=== PATIENT | female | born 1955 | race Caucasian/White ===

== ENCOUNTER 2016-08-26 08:35 | Inpatient (IN) | payer BC, OTHER ==
[~2016-08-26] VITALS: Ht 149.9 cm; Wt 58.1 kg
[2016-08-26] MEDS ORDERED: RT-ALBUTEROL/IPRATROPIUM 3 ML (DUONEB) VIAL ONE (08:40)
[2016-08-26] MEDS ORDERED: DOXY100C2 PO (08:44)
[2016-08-26] MEDS ORDERED: RT-ALBUINH INH (08:45)
[2016-08-26] MEDS ORDERED: PRD50T (08:45)
[2016-08-26] MEDS ORDERED: PRD10T PO (08:45)
[2016-08-26] MEDS ORDERED: FLUT1DIS27 INH (08:45)
[2016-08-26] MEDS ORDERED: TIOT4MIS2 INH (08:45)
[2016-08-26] MEDS ORDERED: RT-ALBUTEROL SULF 2.5 MG/3 ML PRE-MIX VIAL ONE (08:46)
[2016-08-26] MEDS ORDERED: RT-ALBUTEROL/IPRATROPIUM 3 ML (DUONEB) VIAL INH ONE (09:15)
[2016-08-26 09:16] VITALS: BP 148/127
[2016-08-26 09:23] LABS: BASOPHILS % (AUTO) 0 % (0-10); EOSINOPHILS % (AUTO) 0 % (0-10); LYMPHOCYTES # (AUTO) 1.1 X 10^3 (1.0-4.0); LYMPHOCYTES % (AUTO) 6 % (12-44); MEAN CORPUSCULAR HEMOGLOBIN 28 PG (25-34); MEAN CORPUSCULAR HGB CONC 33 G/DL (32-36); MEAN CORPUSCULAR VOLUME 84 FL (80-99); MEAN PLATELET VOLUME 9.5 FL (7.4-10.4); MONOCYTES # (AUTO) 1.2 X 10^3 (0.0-1.0); MONOCYTES % (AUTO) 7 % (0-12); NEUTROPHILS # (AUTO) 15.1 X 10^3 (1.8-7.8); NEUTROPHILS % (AUTO) 87 % (42-75); PLATELET COUNT 491 10^3/uL (130-400); RED BLOOD COUNT 5.08 10^6/uL (4.35-5.85); RED CELL DISTRIBUTION WIDTH 14.5 % (10.0-14.5); WHITE BLOOD COUNT 17.3 10^3/uL (4.3-11.0)
[2016-08-26 09:37] LABS: ALANINE AMINOTRANSFERASE 28 U/L (0-55); ALBUMIN 4.1 G/DL (3.2-4.5); ANION GAP 10 MMOL/L (5-14); ASPARTATE AMINO TRANSFERASE 30 U/L (5-34); BILIRUBIN,TOTAL 0.5 MG/DL (0.1-1.0); BLOOD UREA NITROGEN 15 MG/DL (7-18); BUN/CREATININE RATIO 19; CALCIUM 8.9 MG/DL (8.5-10.1); CARBON DIOXIDE 27 MMOL/L (21-32); CHLORIDE 105 MMOL/L (98-107); GFR ESTIMATED > 60; GLUCOSE 110 MG/DL (70-105); POTASSIUM 4.1 MMOL/L (3.6-5.0); SODIUM 142 MMOL/L (135-145); TOTAL PROTEIN 6.6 G/DL (6.4-8.2)
[2016-08-26 09:41] VITALS: BP 148/106
--- NOTE | 2016-08-26 09:45 | ED Respiratory ---
General Chief Complaint: Respiratory Problems Stated Complaint: SOA Nursing Triage Note: AMB TO ROOM WITH 02 ON REPORTS HAS BEEN SOA FOR SEVERAL DAY WAS PUT ON PREDISONE AND ANTIBIOTIC BY SALES REPRESENTATIVE [employer]. LAST 2 DAYS GOTTEN WORSE. Source: patient Exam Limitations: no limitations History of Present Illness Time seen by provider: 09:40 Initial Comments The patient is a 61-year-old white female with COPD and home oxygen requirements. She reports that the last few days she has had increasing difficulties with breathing. 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 She is not very sophisticated about her medications but it appears that she was originally started of on rifampin and ethambutol. She had some sort of problem with the rifampin. Ultimately this was determined to be Mycobacterium avium complex and she was switched to Biaxin which would be appropriate. Timing/Duration: week Prior Episodes/Possible Cause: chronic episodes Associated Symptoms: cough Allergies and Home Medications Allergies Coded Allergies: rifampin (Verified Allergy, Unknown, 08/26/16) Home Medications Albuterol Sulfate 8.5 Gm Hfa.aer.ad #34 (Reported) Doxycycline Hyclate 100 Mg Capsule #20 (Reported) Fluticasone/Salmeterol 1 Each Blst.w.dev #60 (Reported) Prednisone 50 Mg Tab #7 (Reported) Prednisone 10 Mg Tab #21 (Reported) Tiotropium [place] 4 Gm Mist.inhal #4 (Reported) Constitutional: see HPI EENTM: no symptoms reported Respiratory: cough short of breath wheezing Cardiovascular: palpitations Gastrointestinal: no symptoms reported Genitourinary: no symptoms reported Musculoskeletal: no symptoms reported Skin: no symptoms reported Psychiatric/Neurological: No Symptoms Reported Hematologic/Lymphatic: No Symptoms Reported Immunological/Allergic: no symptoms reported Past Tkodofd-Maaovs-Pjuabe Hx Patient Social History Alcohol Use: Occasionally Uses Recreational Drug Use: No Smoking Status: Former Smoker Recent Foreign Travel: No Contact w/Someone Who Travel: No Recent Infectious Disease Expo: No Recent Hopitalizations: Yes (marcelle) Immunizations Up To Date Date of Influenza Vaccine: Apr 26, 2016 Surgeries HX Surgeries: Yes Surgeries: Hysterectomy Respiratory Hx Respiratory Disorders: Yes (MAC INFECTION IN NOV. ) Respiratory Disorders: COPD Cardiovascular Hx Cardiac Disorders: No Neurological Hx Neurological Disorders: No Reproductive System Hx Reproductive Disorders: No Gastrointestinal Hx Gastrointestinal Disorders: No Musculoskeletal Hx Musculoskeletal Disorders: No Endocrine Hx Endocrine Disorders: No HEENT HX ENT Disorders: No Cancer Hx Cancer: No Psychosocial Hx Psychiatric Problems: No Physical Exam Vital Signs Vital Sign - Last 12Hours 08/26/16 08/26/16 08:35 08:50 Temp 97.8 Pulse 112 Resp 22 B/P 145/112 Pulse Ox 88 O2 Delivery Nasal Cannula O2 Flow Rate 3 Capillary Refill : Less Than 3 Seconds General Appearance: moderate distress Eyes: Bilateral Eye Normal Inspection HEENT: normal ENT inspection Neck: full range of motion Respiratory: decreased breath sounds accessory muscle use expiration ( expiratory wheezing) Cardiovascular: tachycardia Gastrointestinal: normal bowel sounds non tender soft no organomegaly no pulsatile mass Extremities: normal range of motion non-tender normal inspection no pedal edema no calf tenderness normal capillary refill pelvis stable Neurologic/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: 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 nml as tested no motor/sensory deficits alert normal mood/affect oriented x 3 Skin: normal color Lymphatic: no adenopathy axilla node tender (R) axilla node tender (L) inguinal node tender (R) inguinal node tender (L) Progress/Results/Core Measures Results/Orders Lab Results Laboratory Tests Test 08/26/16 08:55 Range/Units Alanine Aminotransferase (ALT/SGPT) 28 0-55 U/L Albumin 4.1 3.2-4.5 G/DL Alkaline Phosphatase 63 40-136 U/L Anion Gap 10 5-14 MMOL/L Aspartate Amino Transf (AST/SGOT) 30 5-34 U/L BUN/Creatinine Ratio 19 Band Neutrophils 0 % Basophils # (Auto) 0.0 0.0-0.1 10^3/uL Basophils % (Manual) 0 % Basophils (%) (Auto) 0 0-10 % Blood Morphology Comment NORMAL Blood Urea Nitrogen 15 7-18 MG/DL Calcium Level 8.9 8.5-10.1 MG/DL Carbon Dioxide Level 27 21-32 MMOL/L Chloride Level 105 98-107 MMOL/L Creatinine 0.80 0.60-1.30 MG/DL Eosinophils # (Auto) 0.0 0.0-0.3 10^3/uL Eosinophils % (Manual) 0 % Eosinophils (%) (Auto) 0 0-10 % Estimat Glomerular Filtration Rate > 60 Glucose Level 110 H 70-105 MG/DL Hematocrit 43 35-52 % Hemoglobin 14.1 11.5-16.0 G/DL Lymphocytes # (Auto) 1.1 1.0-4.0 X 10^3 Lymphocytes % (Manual) 2 % Lymphocytes (%) (Auto) 6 L 12-44 % Mean Corpuscular Hemoglobin 28 25-34 PG Mean Corpuscular Hemoglobin Concent 33 32-36 G/DL Mean Corpuscular Volume 84 80-99 FL Mean Platelet Volume 9.5 7.4-10.4 FL Monocytes # (Auto) 1.2 H 0.0-1.0 X 10^3 Monocytes % (Manual) 1 % Monocytes (%) (Auto) 7 0-12 % Neutrophils # (Auto) 15.1 H 1.8-7.8 X 10^3 Neutrophils % (Manual) 85 % Neutrophils (%) (Auto) 87 H 42-75 % Platelet Count 491 H 130-400 10^3/uL Potassium Level 4.1 3.6-5.0 MMOL/L Reactive Lymphocytes 12 % Red Blood Count 5.08 4.35-5.85 10^6/uL Red Cell Distribution Width 14.5 10.0-14.5 % Sodium Level 142 135-145 MMOL/L Total Bilirubin 0.5 0.1-1.0 MG/DL Total Protein 6.6 6.4-8.2 G/DL White Blood Count 17.3 H 4.3-11.0 10^3/uL My Orders Orders-PITA BERGER MD Albuterol/Ipra Inhalation Soln (Duoneb I (08/26/16 08:40) Albuterol Pre-Mix Nebs (Rt) (Proventil P (08/26/16 08:46) Cbc With Automated Diff (08/26/16 09:01) Comprehensive Metabolic Panel (08/26/16 09:01) Ua Culture If Indicated (08/26/16 09:01) Chest 1 View, Ap/Pa Only (08/26/16 09:01) Albuterol/Ipra Inhalation Soln (Duoneb I (08/26/16 09:15) Rt Request For Service (08/26/16 09:01) Svn Sm Volume Nebulizer Rt-Rfs (08/26/16 09:01) Manual Differential (08/26/16 08:55) Medications Given in ED Current Medications Medications Dose Ordered Sig/Sonia Route Start Time Stop Time Status Last Admin Dose Admin Albuterol Sulfate 2.5 mg STK-MED ONCE .ROUTE 08/26/16 08:46 08/26/16 08:47 DC 08/26/16 08:50 2.5 MG Albuterol/ Ipratropium 3 ml STK-MED ONCE .ROUTE 08/26/16 08:40 08/26/16 08:42 DC 08/26/16 08:49 3 ML Vital Signs/I&O Vital Sign - Last 12Hours 08/26/16 08/26/16 08/26/16 08/26/16 08:35 08:50 09:16 09:41 Temp 97.8 Pulse 112 136 120 Resp 22 14 20 B/P 145/112 148/106 Pulse Ox 88 96 96 98 O2 Delivery Nasal Cannula NIV CPAP O2 Flow Rate 3 40 Blood Pressure Mean: 123 Departure Communication Progress Notes Patient shows some improvement after aerosol treatment however she is still considerably tachypneic and for that matter hypertensive and tachycardic post treatment. I discussed admission for intensive pulmonary toilet with Dr. Mcintosh about 1030 Impression Impression: Primary Impression: COPD with acute exacerbation Additional Impression: MAC Disposition: 09 ADMITTED INPATIENT Condition: Stable/Unchanged Decision to Admit Reason: Admit from ER (General) Decision to Admit/Date: Aug 26, 2016 Time/Decision to Admit Time: 10:51 PITA BERGER MD Aug 26, 2016 09:45
--- NOTE | 2016-08-26 09:50 | Diagnostic Imaging Report ---
EXAMINATION: Portable upright radiograph of the chest. INDICATION: Shortness of breath FINDINGS: There is a 9 mm nodular density in the left perihilar region. This could be a pulmonary nodule versus an endon vessel. The lungs are hyperinflated with prominent interstitial markings. No focal airspace consolidation. No effusion or pneumothorax. The heart size is normal. The mediastinum and mely appear unremarkable. IMPRESSION: Hyperinflated lungs. Indeterminate left perihilar nodular density seen. Further evaluation with CT scan recommended. Dictated by: Dictated on workstation # [id number]
[2016-08-26 10:18] LABS: BAND NEUTROPHILS 0 %; BASOPHILS % (MANUAL) 0 %; EOSINOPHILS % (MANUAL) 0 %; LYMPHOCYTES % (MANUAL) 2 %; NEUTROPHILS % (MANUAL) 85 %; REACTIVE LYMPHOCYTES 12 %
[2016-08-26] MEDS ORDERED: methylPREDNISolone 125 MG (Solu-MEDROL) VIAL IVP ONE (11:00)
[2016-08-26] MEDS ORDERED: ALPRAZolam 0.25 MG (XANAX) TAB PO PRN (12:30)
[2016-08-26] MEDS ORDERED: ONDANSETRON 4 MG/2 ML (SDV) Z0FRAN IVP PRN (12:30)
[2016-08-26] MEDS ORDERED: SENNA W/DOCUSATE (SENOKOT S) TABLET PO PRN (12:30)
[2016-08-26] MEDS ORDERED: ACETAMINOPHEN 500 MG TAB (TYLENOL) PO PRN (12:30)
[2016-08-26 12:35] VITALS: BP 158/99
[2016-08-26] MEDS ORDERED: RT-ALBUTEROL/IPRATROPIUM 3 ML (DUONEB) VIAL INH SCH (13:00)
[2016-08-26] MEDS ORDERED: EFIN4SOL TOP (13:32)
[2016-08-26] MEDS ORDERED: CYCL10TA9 PO (13:32)
[2016-08-26] MEDS ORDERED: CLAR-19 PO (13:32)
[2016-08-26] MEDS ORDERED: LEVO100T7 PO (13:32)
[2016-08-26] MEDS ORDERED: ALEN70TA47 PO (13:32)
[2016-08-26] MEDS ORDERED: ETHA400T29 PO (13:32)
[2016-08-26] MEDS: RT-BUDESONIDE NEBS 0.5 MG/2ML (PULMICORT) AMP INH SCH ×2 (13:33→18:43)
[2016-08-26] MEDS: ENOXAPARIN 40 MG/0.4 ML (LOVENOX) SYR SC SCH (13:46)
[2016-08-26] MEDS ORDERED: NAPR220T66 PO (14:21)
[2016-08-26] MEDS: RT-ALBUTEROL/IPRATROPIUM 3 ML (DUONEB) VIAL INH SCH ×2 (14:47→18:43)
[2016-08-26 14:59] LABS: ABG BASE EXCESS 3.2 MMOL/L (-2.5-2.5); ABG HCO3 29 MMOL/L (23-27); ABG OXYGEN SATURATION 97 % (94-100); ABG PCO2 46 MMHG (35-45); ABG PH 7.41 (7.37-7.43); ABG PO2 75 MMHG (79-93); ABG TCO2 30.2 MMOL/L (21.0-31.0); ALLENS TEST YES-POS; PATIENT TEMP 97.2
[2016-08-26] MEDS ORDERED: ETHAMBUTOL 100 MG PO SCH (15:02)
[2016-08-26 16:55] VITALS: BP 156/91
[2016-08-26] MEDS: methylPREDNISolone 40 MG/ML (Solu-MEDROL) VIAL IV SCH (18:00)
[2016-08-26] MEDS ORDERED: FLU TRIvalent (5 YOA+) 2016-17 (AFLURIA) 0.5 ML IM ONE (18:00)
[2016-08-26] MEDS ORDERED: methylPREDNISolone 40 MG/ML (Solu-MEDROL) VIAL IV SCH (18:00)
[2016-08-26 20:45] VITALS: BP 137/99
[2016-08-27] VITALS: BP 156/96
[2016-08-27] MEDS: methylPREDNISolone 40 MG/ML (Solu-MEDROL) VIAL IV SCH ×5 (00:12→23:54)
[2016-08-27] MEDS: HYDROcodone/APAP 5 MG/325 MG (LORTAB) TAB PO PRN ×4 (00:19→19:46)
[2016-08-27] MEDS ORDERED: RT-ALBUTEROL/IPRATROPIUM 3 ML (DUONEB) VIAL INH PRN (00:30)
[2016-08-27 01:11] LABS: BILIRUBIN,URINE NEGATIVE (NEGATIVE); KETONES,URINE NEGATIVE (NEGATIVE); LEUKOCYTE ESTERASE ,URINE NEGATIVE (NEGATIVE); NITRITE,URINE NEGATIVE (NEGATIVE); PH,URINE 6 (5-9); PROTEIN,URINE NEGATIVE (NEGATIVE); UROBILINOGEN,URINE NORMAL (NORMAL)
[2016-08-27 01:19] LABS: SQUAMOUS EPITHELIAL CELL,UR 0-2 /HPF
[2016-08-27] MEDS: RT-ALBUTEROL/IPRATROPIUM 3 ML (DUONEB) VIAL INH SCH ×6 (02:33→22:07)
[2016-08-27 04:00] VITALS: BP 137/72
[2016-08-27 05:05] LABS: BASOPHILS % (AUTO) 0 % (0-10); EOSINOPHILS % (AUTO) 0 % (0-10); LYMPHOCYTES # (AUTO) 0.6 X 10^3 (1.0-4.0); LYMPHOCYTES % (AUTO) 3 % (12-44); MEAN CORPUSCULAR HEMOGLOBIN 28 PG (25-34); MEAN CORPUSCULAR HGB CONC 32 G/DL (32-36); MEAN CORPUSCULAR VOLUME 85 FL (80-99); MEAN PLATELET VOLUME 9.5 FL (7.4-10.4); MONOCYTES # (AUTO) 0.8 X 10^3 (0.0-1.0); MONOCYTES % (AUTO) 4 % (0-12); NEUTROPHILS # (AUTO) 16.5 X 10^3 (1.8-7.8); NEUTROPHILS % (AUTO) 92 % (42-75); PLATELET COUNT 444 10^3/uL (130-400); RED BLOOD COUNT 4.91 10^6/uL (4.35-5.85); RED CELL DISTRIBUTION WIDTH 14.5 % (10.0-14.5); WHITE BLOOD COUNT 17.9 10^3/uL (4.3-11.0)
[2016-08-27 05:26] LABS: ALANINE AMINOTRANSFERASE 29 U/L (0-55); ALBUMIN 3.8 G/DL (3.2-4.5); ANION GAP 11 MMOL/L (5-14); ASPARTATE AMINO TRANSFERASE 25 U/L (5-34); BILIRUBIN,TOTAL 0.4 MG/DL (0.1-1.0); BLOOD UREA NITROGEN 17 MG/DL (7-18); BUN/CREATININE RATIO 22; CALCIUM 8.2 MG/DL (8.5-10.1); CARBON DIOXIDE 27 MMOL/L (21-32); CHLORIDE 102 MMOL/L (98-107); CREATININE SERUM 0.77 MG/DL (0.60-1.30); GFR ESTIMATED > 60; GLUCOSE 138 MG/DL (70-105); POTASSIUM 4.1 MMOL/L (3.6-5.0); SODIUM 140 MMOL/L (135-145); TOTAL PROTEIN 6.2 G/DL (6.4-8.2)
--- NOTE | 2016-08-27 06:39 | Pulmonary Consultation ---
History of Present Illness History of Present Illness Date of Consultation 08/27/16 06:32 Date of Admission History of Present Illness 61yo with hx of severe COPD with home oxygen, MAC 1yr ago (known to ID in [place] ) presented secondary to worsening SOB. She was on treatment for her MAC through ID ( Dr. Carl) however she did not tolerate rifampin. Pt was supposed to be on Azithromycin and Ethambutol at home however pt could not afford medications and decided to go off treatment and did not follow back up with ID. Petr Mayer RN spoke with Dr. Carl's office and confirmed above information. Pt is presenting with worsening SOB over the last 3-4 days. Pt was placed on prednisone and Abx by [facility] without significant improvement. I am consulted for pulmonary management . Allergies and Home Medications Allergies Coded Allergies: rifampin (Verified Allergy, Unknown, 08/26/16) Home Medications Albuterol Sulfate 8.5 Gm Hfa.aer.ad 2 PUFF INH Q4H PRN PRN SHORTNESS OF BREATH ( Reported) Alendronate Sodium 70 Mg Tablet 70 MG PO [place] (Reported) Cyclobenzaprine HCl 10 Mg Tablet 10 MG PO TID PRN PRN MUSCLE SPASMS (Reported) Doxycycline Hyclate 100 Mg Capsule 10Days 100 MG PO BID (Reported) 10 DAY SUPPLY FILLED 08-20-16 Fluticasone/Salmeterol 1 Each Blst.w.dev 1 PUFF INH BID (Reported) Levothyroxine Sodium 100 Mcg Tablet 100 MCG PO DAILY (Reported) Naproxen Sodium 220 Mg Tablet 220 MG PO Q8H PRN PRN PAIN (Reported) Prednisone 10 Mg Tab 10Days PO UD (Reported) 4 TABS X 2 DAYS 3 TABS X 2 DAYS 2 TABS X 2 DAYS 1 TAB X 2 DAYS 1/2 TAB X 2 DAYS FILLED #21 08-24-16 Tiotropium [place] 4 Gm Mist.inhal 2 PUFF INH DAILY (Reported) Past Uebzyck-Bxouji-Tfhzlv Hx Patient Social History Alcohol Use: Regular Use Recreational Drug Use: No Smoking Status: Never a Smoker Recent Foreign Travel: No Contact w/Someone Who Travel: No Recent Infectious Disease Expo: No Recent Hopitalizations: Yes (marcelle) Physical Abuse Screen: No Sexual Abuse: No Immunizations Up To Date Date of Influenza Vaccine: Apr 26, 2016 Seasonal Allergies Seasonal Allergies: No Surgeries HX Surgeries: Yes Surgeries: Hysterectomy Respiratory Hx Respiratory Disorders: Yes (MAC INFECTION IN NOV. ) Respiratory Disorders: COPD Cardiovascular Hx Cardiac Disorders: No Neurological Hx Neurological Disorders: No Reproductive System Hx Reproductive Disorders: No Gastrointestinal Hx Gastrointestinal Disorders: No Musculoskeletal Hx Musculoskeletal Disorders: No Musculoskeletal Disorders: Scoliosis Endocrine Hx Endocrine Disorders: No HEENT HX ENT Disorders: No Cancer Hx Cancer: No Psychosocial Hx Psychiatric Problems: No Blood Transfusions Adverse Reaction to a Blood Tr: No Family Medical History Family Medial History: Patient reports no known family medical history. Review of Systems Constitutional: : Malaise: WeaknessNo: Chills, Fever, Other, Sweats Eyes: No: Conjunctivae inflammation, Eyelid inflammation, Other, Pain, Redness , Vision change Respiratory: : Cough: SOB with excertion: Shortness of breath: Sputum Cardiovascular: : Paroxysmal Noc. Dyspnea Gastrointestinal: No: Abdominal Pain, Constipation, Diarrhea, Hematochezia, Melena, Nausea, Other, Vomiting Neurological: : Weakness Exam Exam Vital Signs Date Time Temp Pulse Resp B/P Pulse Ox O2 Delivery O2 Flow Rate FiO2 08/27/16 04:00 98.3 104 20 137/72 96 Nasal Cannula 3.00 08/27/16 02:33 94 3.00 08/27/16 00:40 96 5.00 08/27/16 00:00 98.2 105 19 156/96 97 Nasal Cannula 3.00 08/26/16 20:45 98.7 129 21 137/99 90 Nasal Cannula 3.00 08/26/16 20:25 Nasal Cannula 3.00 08/26/16 18:53 98 3.00 08/26/16 18:43 94 3.00 08/26/16 16:55 98.0 109 24 156/91 94 Nasal Cannula 3.00 08/26/16 14:47 95 3.00 08/26/16 12:55 112 20 97 08/26/16 12:35 97 Nasal Cannula 3.00 08/26/16 12:35 97.1 105 18 158/99 96 Nasal Cannula 3.00 08/26/16 11:02 125 17 95 40 08/26/16 09:41 120 20 148/106 98 NIV CPAP 08/26/16 09:16 136 14 96 40 08/26/16 08:50 96 3 08/26/16 08:35 97.8 112 22 145/112 88 Nasal Cannula I & O 08/27/16 07:00 Intake Total 620 ml Output Total 775 ml Balance -155 ml General Appearance: No Apparent Distress WD/WN Anxious Chronically ill Respiratory: Normal Breath Sounds No Accessory Muscle Use No Respiratory Distress Decreased Breath Sounds Cardiovascular: Regular Rate, Rhythm No Edema Capillary Refill: Less Than 3 Seconds Gastrointestinal: normal bowel sounds non tender soft no organomegaly no pulsatile mass Neurologic/Psychiatric: Alert Oriented x3 Skin: Normal Color Warm/Dry Lymphatic: No Adenopathy Results Lab Laboratory Tests 08/26/16 08:55 08/27/16 04:30 Assessment/Plan Assessment/Plan -COPDAE oxygen dependent - quit smoking 5 yrs ago -Solumedrol, SVNs -Continue azithromycin and start cefepime -check sputum C&S -oxygen Hx of MAC - she quit treatment secondary to helms -azithromycin and ethambutol - previously rx by ID ---- PT IS REFUSING MAC TREATMENT -consult SW for financial assistance -obtain CT of chest that was done 3 wks ago -This does not require isolation -Obtain cultures from [facility] pt has had a recent bronchoscopy. Pt is known to pulmonary in [place] leukocytosis - possibly secondary to prednisone -check coulter cultures Poor medical compliance - pt is very difficult to treat. She was threatening to leave AMA last night secondary to RT trying to give her an SVN treatment. She was also yelling at Petr MITCHELL over her MAC treatment. I did explain to pt that she has the right to refuse treatment and sign herself out AMA if she wishes. Clinical Quality Measures DVT/VTE Risk/Contraindication: Risk Factor Score Per Nursin RFS Level Per Nursing on Admit: 4+=Very High PARRISH AGGARWAL DO Aug 27, 2016 06:39
[2016-08-27] MEDS: CEFEPIME INJECTION 2,000 MG in NS (IVPB) 50 ML IV SCH (07:59)
[2016-08-27] MEDS: AZITHROMYCIN 250 MG TAB (ZITHROMAX) PO SCH (07:59)
[2016-08-27 08:00] VITALS: BP 165/98
[2016-08-27] MEDS: RT-BUDESONIDE NEBS 0.5 MG/2ML (PULMICORT) AMP INH SCH ×2 (09:03→18:11)
[2016-08-27] MEDS ORDERED: CYCLOBENZAPRINE 10 MG (FLEXERIL) TAB PO PRN (09:30)
[2016-08-27] MEDS ORDERED: NAPROXEN 250 MG (NAPROSYN) TABLET PO PRN (10:00)
[2016-08-27] MEDS ORDERED: CATHETER FLUSH 10 ML SYR IV PRN (10:15)
--- NOTE | 2016-08-27 11:13 | History & Physical-Hospitalist ---
HPI History of Present Illness: HPI/Chief Complaint CC: SOB HPI: This is a 61yoWF that has a recent hx of MAC that presents to the ER with SOB. Isolation has been DC'd by Dr. Cheng and overall doing much better. Pt was previously hospitalized in [place] in May and was diagnosed with bacterial infection. Pt was previously placed on Biaxin and Zithromax, along with 50mg of Prednisone. Pt was also placed on Doxycycline from Urgent Care. Pt is has hx of COPD and uses home O2. Chart Review: WBC 17.9 due to steroid effect ABG reveals 7.41/46/75 on 3L CMP normal UA normal CXR COPD changes Patient Interview: Pt states that she feels a little bit better than yesterday. Pt states that she only uses home O2 prn. Dr. Tam informs pt that isolation has been DCd. Pt's PCP is Dr. Lu. Pt states that she quit smoking 7 yrs ago. Pt drinks 2-3 beers per week. Pt lives alone. 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 Physical exam stable Pt states that she has a cold Pt denies taking pain medicine regularly, although pt occasionally uses Aleve or Hydrocodone for her back. Dr. Tam discusses with pt the possibility of staying a few more nights at [facility] for full recovery. Pt agrees with this plan. Pt uses [facility] pharmacy near the [facility]. Scribed by Aden Esteban under the direct supervision of Dr. Tam. Source: patient Exam Limitations: no limitations Date Seen 08/27/16 Attending Physician Abigail Tam DO PCP No,Local Physician Referring Physician Date of Admission Aug 26, 2016 at 11:22 Home Medications & Allergies Home Medications Reviewed patient Home Medication Reconciliation Form Allergies Coded Allergies: rifampin (Verified Allergy, Unknown, 08/26/16) Past Jrclkbu-Juchqg-Mhgslj Hx Patient Social History Marrital Status: single Employed/Student: retired ([employer]) Alcohol Use: Regular Use Recreational Drug Use: No Smoking Status: Former Smoker (quit in 2009) Physical Abuse Screen: No Sexual Abuse: No Recent Foreign Travel: No Contact w/other who traveled: No Recent Hopitalizations: Yes (marcelle) Recent Infectious Disease Expo: No Immunizations Up To Date Date of Influenza Vaccine: Apr 26, 2016 Seasonal Allergies Seasonal Allergies: No Surgeries HX Surgeries: Yes Surgeries: Hysterectomy Respiratory Hx Respiratory Disorders: Yes (MAC INFECTION IN NOV. ) Respiratory Disorders: COPD, Emphysema Cardiovascular Hx Cardiovascular Disorders: No Neurological Hx Neurological Disorders: No Reproductive System Hx Reproductive Disorders: No Genitourinary Hx Genitourinary Disorders: No Gastrointestinal Hx Gastrointestinal Disorders: No Musculoskeletal Hx Musculoskeletal Disorders: Yes Musculoskeletal Disorders: Scoliosis Endocrine Hx Endocrine Disorders: Yes Endocrine Disorders: Hypothyroidsim HEENT HX ENT Disorders: No Cancer Hx Cancer: No Psychosocial Hx Psychiatric Problems: No Blood Transfusions Adverse Reaction to a Blood Tr: No Family Medical History Family Hx: Patient reports no known family medical history. Review of Systems Constitutional: see HPI chills diaphoresis dizziness fever weakness EENTM: no symptoms reported Respiratory: cough dyspnea on exertion short of breath wheezing Cardiovascular: no symptoms reported Gastrointestinal: no symptoms reported Genitourinary: no symptoms reported Musculoskeletal: no symptoms reported Skin: no symptoms reported Psychiatric/Neurological: No Symptoms Reported All Other Systems Reviewed Negative Unless Noted: Yes Physical Exam Physical Exam Vital Signs Vital Sign - Last 12Hours 08/26/16 08/26/16 08:35 08:50 Temp 97.8 Pulse 112 Resp 22 B/P 145/112 Pulse Ox 88 O2 Delivery Nasal Cannula O2 Flow Rate 3 Capillary Refill : Less Than 3 Seconds General Appearance: No Apparent Distress WD/WN Anxious Chronically ill Mild Distress (due to mild tachypnea when conversing) Eyes: Bilateral Eye Normal Inspection, Bilateral Eye PERRL HEENT: PERRL/EOMI Normal ENT Inspection Pharynx Normal Neck: Full Range of Motion Normal Inspection Non Tender Supple Carotid Bruit Respiratory: Chest Non Tender No Respiratory Distress Accessory Muscle Use ( when conversing) Crackles Decreased Breath Sounds Rales Wheezing Cardiovascular: Regular Rate, Rhythm No Edema No Gallop No JVD No Murmur Normal Peripheral Pulses Gastrointestinal: Normal Bowel Sounds No Organomegaly No Pulsatile Mass Non Tender Soft Back: Normal Inspection No CVA Tenderness No Vertebral Tenderness Extremity: Normal Capillary Refill Normal Inspection Normal Range of Motion Non Tender No Calf Tenderness No Pedal Edema Neurologic/Psychiatric: Alert Oriented x3 No Motor/Sensory Deficits Normal Mood/Affect Skin: Normal Color Warm/Dry Lymphatic: No Adenopathy Results Results/Procedures Lab Laboratory Tests 08/26/16 08:55 08/27/16 04:30 Assessment/Plan Admission Diagnosis Assessment: AECOPD with Hypoxia in an O2 dependent pt Acute MAC infection Previous smoker Hypothyroidism Chronic low back pain Osteoporosis Assessment and Plan Plan: Case management consult to change to In-pt status Reconcile home meds Maintain oxygen Maintain nebulizer treatments Appreciate Dr. Cheng's consultation recommendations Maintain cefepime Likely discharge Tuesday as long as doing well Marquise with Dr. Lu clinic is referring her to infectious disease at [facility] Clinical Quality Measures DVT/VTE Risk/Contraindication: Risk Factor Score Per Nursin RFS Level Per Nursing on Admit: 4+=Very High ABIGAIL TAM DO Aug 27, 2016 11:13
[2016-08-27 12:00] VITALS: BP 137/95
[2016-08-27] MEDS ORDERED: LEVOTHYROXINE 100 MCG (LEVOTHROID) TAB ONE (13:07)
[2016-08-27] MEDS: LEVOTHYROXINE 100 MCG (LEVOTHROID) TAB PO SCH (13:09)
[2016-08-27] MEDS: CATHETER FLUSH 10 ML SYR IV SCH ×2 (13:10→22:00)
[2016-08-27] MEDS: ENOXAPARIN 40 MG/0.4 ML (LOVENOX) SYR SC SCH (13:14)
[2016-08-27 15:52] VITALS: BP 153/88
[2016-08-27] MEDS: RT-ADVAIR HFA 115/21 MCG PER PUFF IH SCH (18:11)
[2016-08-27 19:45] VITALS: BP 162/89
[2016-08-28] VITALS: BP 144/77
[2016-08-28] MEDS ORDERED: RT-ALBUTEROL/IPRATROPIUM 3 ML (DUONEB) VIAL INH PRN (00:30)
[2016-08-28] MEDS: RT-ALBUTEROL/IPRATROPIUM 3 ML (DUONEB) VIAL INH SCH ×6 (02:09→22:08)
[2016-08-28] MEDS: HYDROcodone/APAP 5 MG/325 MG (LORTAB) TAB PO PRN ×2 (02:45→22:38)
[2016-08-28 03:27] LABS: BASOPHILS % (AUTO) 0 % (0-10); EOSINOPHILS % (AUTO) 0 % (0-10); LYMPHOCYTES # (AUTO) 0.6 X 10^3 (1.0-4.0); LYMPHOCYTES % (AUTO) 4 % (12-44); MEAN CORPUSCULAR HEMOGLOBIN 28 PG (25-34); MEAN CORPUSCULAR HGB CONC 32 G/DL (32-36); MEAN CORPUSCULAR VOLUME 85 FL (80-99); MEAN PLATELET VOLUME 9.3 FL (7.4-10.4); MONOCYTES # (AUTO) 0.6 X 10^3 (0.0-1.0); MONOCYTES % (AUTO) 4 % (0-12); NEUTROPHILS # (AUTO) 13.1 X 10^3 (1.8-7.8); NEUTROPHILS % (AUTO) 92 % (42-75); PLATELET COUNT 382 10^3/uL (130-400); RED BLOOD COUNT 4.59 10^6/uL (4.35-5.85); RED CELL DISTRIBUTION WIDTH 14.3 % (10.0-14.5); WHITE BLOOD COUNT 14.3 10^3/uL (4.3-11.0)
[2016-08-28 03:47] LABS: ALANINE AMINOTRANSFERASE 24 U/L (0-55); ALBUMIN 3.4 G/DL (3.2-4.5); ANION GAP 10 MMOL/L (5-14); ASPARTATE AMINO TRANSFERASE 18 U/L (5-34); BILIRUBIN,TOTAL 0.4 MG/DL (0.1-1.0); BLOOD UREA NITROGEN 15 MG/DL (7-18); BUN/CREATININE RATIO 24; CALCIUM 8.1 MG/DL (8.5-10.1); CARBON DIOXIDE 28 MMOL/L (21-32); CHLORIDE 101 MMOL/L (98-107); CREATININE SERUM 0.63 MG/DL (0.60-1.30); GFR ESTIMATED > 60; GLUCOSE 140 MG/DL (70-105); POTASSIUM 4.4 MMOL/L (3.6-5.0); SODIUM 139 MMOL/L (135-145); TOTAL PROTEIN 5.7 G/DL (6.4-8.2)
[2016-08-28] MEDS: CATHETER FLUSH 10 ML SYR IV SCH ×3 (05:07→22:37)
[2016-08-28] MEDS: methylPREDNISolone 40 MG/ML (Solu-MEDROL) VIAL IV SCH ×4 (05:07→23:29)
[2016-08-28 05:08] VITALS: BP 148/84
[2016-08-28] MEDS: RT-BUDESONIDE NEBS 0.5 MG/2ML (PULMICORT) AMP INH SCH ×2 (06:25→18:09)
[2016-08-28] MEDS: RT-ADVAIR HFA 115/21 MCG PER PUFF IH SCH ×2 (06:25→18:10)
[2016-08-28] MEDS: UMECLIDINIUM BROMIDE (INCRUSE ELLIPTA) 7'S IH SCH (06:38)
[2016-08-28 08:05] VITALS: BP 134/90
[2016-08-28] MEDS: LEVOTHYROXINE 100 MCG (LEVOTHROID) TAB PO SCH (09:03)
[2016-08-28] MEDS: AZITHROMYCIN 250 MG TAB (ZITHROMAX) PO SCH (09:03)
[2016-08-28] MEDS: CEFEPIME INJECTION 2,000 MG in NS (IVPB) 50 ML IV SCH (09:04)
[2016-08-28] MEDS: ENOXAPARIN 40 MG/0.4 ML (LOVENOX) SYR SC SCH (12:53)
[2016-08-28 16:17] VITALS: BP 151/97
--- NOTE | 2016-08-28 16:31 | Progress Note-Hospitalist ---
Standard Progress Note Progress Notes/Assess & Plan Date Seen 08/28/16 Diagnosis Assessment: AECOPD with Hypoxia in an O2 dependent pt Acute MAC infection Previous smoker Hypothyroidism Chronic low back pain Osteoporosis Assess & Plan/Chief Complaint The patient is clearly in an argumentative mood today. She is possessed of the thought that she is being blamed for her illness. She reports that the lung abnormality by chest x-ray was noted in 2014 however no diagnosis was made until March 2016. I'm not completely clear about the initial thought of the diagnosis but I believe by the fact that she was started on a 3 drug regimen that initially this was thought to be mycobacterium tuberculosis. She became ill on the medications and ultimately stopped them. She was then restarted on ethambutol and either Zithromax or Biaxin by the infectious disease doctor in [place]. She is then been off of the since just after . She reports that she then apparently contracted a viral upper respiratory illness which was going about her family. This is what brought her here. She also states that she has an outpatient appointment to see the pulmonary/infectious disease team. Physical exam: She is apparently comfortable on nasal cannula O2. Her SaO2's are in the 90s. It is noted that her white count has fallen from 17.3-14.3. There is a pink blow to her cheeks. The lungs show distant breath sounds without wheezing. CV is regular. Impression: COPD with exacerbation of bronchospasm. 2.MAC by history. 3.apparent viral upper respiratory illness. Plan: Continue pulmonary toilet. Consider discharge tomorrow. Labs Laboratory Tests 08/27/16 04:30 08/28/16 03:10 PITA BERGER MD Aug 28, 2016 16:31
[2016-08-28 20:26] VITALS: BP 151/90
[2016-08-29] VITALS: BP 142/84
[2016-08-29] MEDS: RT-ALBUTEROL/IPRATROPIUM 3 ML (DUONEB) VIAL INH SCH ×3 (02:39→10:15)
[2016-08-29] MEDS: HYDROcodone/APAP 5 MG/325 MG (LORTAB) TAB PO PRN ×2 (03:19→09:13)
[2016-08-29 04:00] VITALS: BP 137/65
[2016-08-29] MEDS: methylPREDNISolone 40 MG/ML (Solu-MEDROL) VIAL IV SCH ×2 (05:11→11:41)
[2016-08-29] MEDS: CATHETER FLUSH 10 ML SYR IV SCH (05:11)
[2016-08-29] MEDS: UMECLIDINIUM BROMIDE (INCRUSE ELLIPTA) 7'S IH SCH (06:39)
[2016-08-29] MEDS: RT-BUDESONIDE NEBS 0.5 MG/2ML (PULMICORT) AMP INH SCH (06:39)
[2016-08-29] MEDS: RT-ADVAIR HFA 115/21 MCG PER PUFF IH SCH (06:39)
[2016-08-29 08:00] VITALS: BP 148/93
[2016-08-29] MEDS ORDERED: AZITHROMYCIN 250 MG TAB (ZITHROMAX) PO SCH (09:00)
[2016-08-29] MEDS: LEVOTHYROXINE 100 MCG (LEVOTHROID) TAB PO SCH (09:08)
[2016-08-29] MEDS: CEFEPIME INJECTION 2,000 MG in NS (IVPB) 50 ML IV SCH (09:09)
[2016-08-29] MEDS ORDERED: AZIT250T5 PO (11:07)
[2016-08-29] MEDS ORDERED: HYDR-3812 PO (11:07)
[2016-08-29] MEDS ORDERED: PRD10T PO (11:07)
--- NOTE | 2016-08-29 11:11 | Discharge Inst-Simple/Standard ---
Discharge Inst-Standard Discharge Medications New, Converted or Re-Newed RX: RX Given to Pt/Family Patient Instructions/Follow Up Plan of Care/Instructions/FU: Medications as on discharge medication sheet. You may require oxygen continuously at present. Call [facility] to schedule pulmonary/infectious disease evaluation as soon as possible Activity as Tolerated: Yes Goal: Maintaining in your home. Discharge Diet: No Restrictions Return to The Hospital For: Decline in condition Planned Outpatient Orders/Ref. Pneu Vac Indicated: Yes PITA BERGER MD Aug 29, 2016 11:11
--- NOTE | 2016-08-29 11:13 | Progress Note-Hospitalist ---
Standard Progress Note Progress Notes/Assess & Plan Date Seen 08/29/16 Diagnosis Assessment: AECOPD with Hypoxia in an O2 dependent pt Acute MAC infection Previous smoker Hypothyroidism Chronic low back pain Osteoporosis Assess & Plan/Chief Complaint The patient continues to improve. She believes she is ready for discharge today. She continues to cough and produce some sputum. She reports that previous to admission she was able to go for periods of time without oxygen. During that period she has been in the hospital she has been on continuous O2. She has a concentrator at home. Physical exam: Color is good. She does not positive conversation to breathe. Lungs are distant but clear. CV is regular without murmur. Abdomen is soft. Extremities show no pedal edema. Impression: COPD with exacerbation, improvement such to warrant discharge. 2.MAC Plan: See discharge instructions and medications Labs Laboratory Tests 08/28/16 03:10 PITA BERGER MD Aug 29, 2016 11:13
[2016-08-29] MEDS: ENOXAPARIN 40 MG/0.4 ML (LOVENOX) SYR SC SCH (11:41)
[2016-08-29] MEDS ORDERED: BUDE0.5A INH (11:52)
--- NOTE | 2016-09-15 15:51 | Discharge Summary-Hospitalist ---
Diagnosis/Chief Complaint Date of Admission Aug 26, 2016 at 12:35 Date of Discharge Aug 29, 2016 at 12:15 Discharge Date: Aug 29, 2016 Admission Diagnosis Assessment: AECOPD with Hypoxia in an O2 dependent pt Acute MAC infection Previous smoker Hypothyroidism Chronic low back pain Osteoporosis Discharge Diagnosis 1.COPD in exacerbation. 2.hypoxia secondary to number 1. 3.chronic low back pain 4.recent history of Mycobacterium avium complex infection Reason Hospital Visit/Course CC: SOB HPI: This is a 61yoWF that has a recent hx of MAC that presents to the ER with SOB. Isolation has been DC'd by Dr. Cheng and overall doing much better. Pt was previously hospitalized in [place] in May and was diagnosed with bacterial infection. Pt was previously placed on Biaxin and Zithromax, along with 50mg of Prednisone. Pt was also placed on Doxycycline from Urgent Care. Pt is has hx of COPD and uses home O2. Chart Review: WBC 17.9 due to steroid effect ABG reveals 7.41/46/75 on 3L CMP normal UA normal CXR COPD changes Patient Interview: Pt states that she feels a little bit better than yesterday. Pt states that she only uses home O2 prn. Dr. Mcintosh informs pt that isolation has been DCd. Pt's PCP is Dr. Lu. Pt states that she quit smoking 7 yrs ago. Pt drinks 2-3 beers per week. Pt lives alone. 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 Physical exam stable Pt states that she has a cold Pt denies taking pain medicine regularly, although pt occasionally uses Aleve or Hydrocodone for her back. Dr. Mcintosh discusses with pt the possibility of staying a few more nights at [facility] for full recovery. Pt agrees with this plan. [facility] the [facility]. Scribed by Aden Esteban under the direct supervision of Dr. Mcintosh. The patient is a variable history of taking medications prescribed for the treatment of her Mycobacterium avium complex. Mostly she blamed previous healthcare providers for failing to diagnose her difficulties going back a period of perhaps 2 years. It is not really clear how this was relevant to the broken history of medication compliance at this time. She apparently had a previously scheduled pulmonology appointment a [facility] and desired to be discharged in order to accommodate this evaluation. Her acute condition and appeared improved. Discharge Summary Discharge Physical Examination Allergies: Coded Allergies: rifampin (Verified Allergy, Unknown, 08/26/16) Hospital Course Labs (last 24 hrs) Microbiology 08/26/16 Blood Culture - Final, Complete No growth 08/27/16 Gram Stain - Final, Resulted 08/27/16 Sputum Culture - Preliminary, Resulted Fungus Discharge Home Medications: Active Scripts Active Budesonide 0.5 Mg/2 Ml Ampul.neb 0.5 Mg INH RTBID Azithromycin 250 Mg Tablet 500 Mg PO DAILY Hydrocodon -Acetaminophen 5-325 (Hydrocodone/Acetaminophen) 1 Each Tablet 1 Tab PO Q4H PRN Prednisone 10 Mg Tab 0 PO UD 10 Days 4 TABS X 2 DAYS 3 TABS X 2 DAYS 2 TABS X 2 DAYS 1 TAB X 2 DAYS 1/2 TAB X 2 DAYS FILLED #21 08-24-16 Reported Aleve (Naproxen Sodium) 220 Mg Tablet 220 Mg PO Q8H PRN Alendronate Sodium 70 Mg Tablet 70 Mg PO MORENO Levothyroxine Sodium 100 Mcg Tablet 100 Mcg PO DAILY Cyclobenzaprine HCl 10 Mg Tablet 10 Mg PO TID PRN Spiriva Respimat (Tiotropium [place]) 4 Gm Mist.inhal 2 Puff INH DAILY Proair Hfa (Albuterol Sulfate) 8.5 Gm Hfa.aer.ad 2 Puff INH Q4H PRN Instructions to patient/family Please see electonic discharge instructions given to patient. Clinical Quality Measures DVT/VTE Risk/Contraindication: Risk Factor Score Per Nursin RFS Level Per Nursing on Admit: 4+=Very High PITA BERGER MD Sep 15, 2016 15:51
== END 2016-08-29 12:15 | disposition home or self-care (01) | DRG 191 ==
LOC: ER 08:37 → INTOOBSV 11:22 → OBSVTOIN 11:22 → 4TH 11:22 → UNDOADMOB 11:22 → OBSVTOIN 12:35 → 4TH 12:35 → INTOOBSV 12:35 → 4TH 13:00
PROVIDERS: ADMIT Internal Medicine; ATTEND Internal Medicine
DX: J44.1 Chronic obstructive pulmonary disease with (acute) exacerbation (principal); A31.2 Disseminated mycobacterium avium-intracellulare complex (DMAC); J06.9 Acute upper respiratory infection, unspecified; E03.9 Hypothyroidism, unspecified; M81.0 Age-related osteoporosis without current pathological fracture; Z87.891 Personal history of nicotine dependence; Z99.81 Dependence on supplemental oxygen; Z91.19 Patient's noncompliance with other medical treatment and regimen; Z23 Encounter for immunization
CPT/HCPCS: 36415; 71010; 80053; 81000; 82805; 83605; 85007; 85025; 85027; 87040; 87070; 87205; 94640; 94660; 94664; 94760; 96374

== ENCOUNTER → 2016-11-18 | Outpatient (CLI) | payer BC ==
[~2016-11-18] MED LIST: ALEN70TA47 PO; AZIT250T5 PO; BUDE0.5A INH; CATHETER FLUSH 10 ML SYR IV PRN; CLAR-19 PO; CYCL10TA9 PO; DOXY100C2 PO; EFIN4SOL TOP; ETHA400T29 PO; FLUT1DIS27 INH; HYDR-3812 PO; LEVO100T7 PO; NAPR220T66 PO; PRD10T PO; PRD50T; RT-ALBUINH INH; TIOT4MIS2 INH
--- NOTE | 2016-11-18 12:57 | Diagnostic Imaging Report ---
EXAMINATION: HIDA with EF measurements Indication: Abdominal pain TECHNIQUE: After the intravenous administration of 5.1 mCi of Tc 99m Choletec, imaging over the abdomen was obtained. This was followed by administration of Ensure orally to stimulate intrinsic CCK secretion, followed by continued imaging with ejection fraction measured. FINDINGS: There is homogeneous uptake in the liver with prompt bile duct and gallbladder filling seen. Bowel activity is seen at 20 minutes. Based on further imaging and gallbladder area of interest activity measurements after the administration of Ensure, the gallbladder ejection fraction is estimated at 37%. IMPRESSION: 1. Normal hepatobiliary uptake and Gallbladder filling. 2. Borderline biliary dyskinesia. Borderline abnormal gallbladder ejection fraction. Correlate clinically. Dictated by: Dictated on workstation # [id number]
== END ==
LOC: CARD 09:51
PROVIDERS: ATTEND Nurse Practitioner Family
DX: R10.11 Right upper quadrant pain (principal)
CPT/HCPCS: 78227

== ENCOUNTER 2017-03-31 08:43 | Emergency (ER) | payer BC ==
[~2017-03-31] VITALS: Ht 147.3 cm; Wt 59.0 kg
[~2017-03-31 08:43] MED LIST changes: -CATHETER FLUSH 10 ML SYR IV PRN
--- OUTSIDE RECORDS SUMMARY | 2017-03-31 08:50 | XMS REPORT | Referral Summary ---
Author [facility] Address Unknown Phone Unavailable Care Team Providers Care Integrity Engineer Name Role Phone NONE, PCP PCP Unavailable Encounter Clinic [facility] [id number] Date(s): 09/22/16 - 09/22/16 [facility] [address] [address]- [facility] Discharge Disposition: Home Vital Signs No data available for this section Problem List Condition Effective Dates Status Health Status Informant Graves' Active disease(Confirmed) Allergies, Adverse Reactions, Alerts No Known Allergies Medications Advair Diskus 500 mcg-50 mcg inhalation powder 1 puff, INH, BID Start Date: 09/13/16 Status: Ordered fluconazole 100 mg oral tablet See Instructions, 2 po today, then 1 po daily, 0 Refill(s) Start Date: 09/13/16 Status: Ordered Fosamax 70 mg oral tablet 70 mg=1 tab, PO, qFRI Start Date: 09/13/16 Status: Ordered ProAir HFA 90 mcg/inh inhalation aerosol 2 puff, INH Start Date: 09/13/16 Status: Ordered Probiotic 1 packet, PO, TID Start Date: 09/13/16 Status: Ordered Spiriva Respimat 2.5 mcg/inh inhalation aerosol 2 puff, INH, qDay Start Date: 09/13/16 Status: Ordered Synthroid 100 mcg (0.1 mg) oral tablet 100 mcg=1 tab, PO, qDay Start Date: 09/13/16 Status: Ordered Results No data available for this section Immunizations Given and Recorded Vaccine Date Status Refusal Reason influenza virus vaccine1 08/30/16 Recorded 1Location History: [address] [place] Procedures No data available for this section Social History Social History Type Response Smoking Status Former smoker Functional Status No data available for this section Reason for Referral No data available for this section Assessment and Plan No data available for this section
--- OUTSIDE RECORDS SUMMARY | 2017-03-31 08:50 | XMS REPORT | Referral Summary ---
Demographics Preferred Language Algerian Marital Status Unknown Spiritism Affiliation Unknown Race Unknown Ethnic Group Unknown Author [facility] Organization [facility] Address Unknown Phone Unavailable Encounter Clinic [facility] [id number] Date(s): 08/30/16 - 08/30/16 [facility] [address] [place] [address] [phone] Discharge Disposition: 01 [facility] Home Vital Signs No data available for this section Problem List No data available for this section Allergies, Adverse Reactions, Alerts No data available for this section Medications No data available for this section Results No data available for this section Immunizations No data available for this section Procedures No data available for this section Social History No data available for this section Functional Status No data available for this section Reason for Referral No data available for this section Assessment and Plan No data available for this section
--- OUTSIDE RECORDS SUMMARY | 2017-03-31 08:50 | XMS REPORT | Referral Summary ---
Author [facility] Organization [facility] Address Unknown Phone Unavailable Care Team Providers Care Machine Cementer Name Role Phone NONE, PCP PCP Unavailable Encounter Clinic [facility] [id number] Date(s): 09/13/16 - 09/13/16 [facility] [address] [place] [address] [phone] Discharge Diagnosis: Pulmonary Mycobacterium avium complex (MAC) infection Discharge Disposition: Home Attending Physician: Alden Walker MD Referring Physician: primo morgan Vital Signs Most recent to 1 oldest [Reference Range]: Height FT 4.82 ft (09/13/16 3:50 PM) Height 147 cm (09/13/16 3:50 PM) Weight LBS 124.78 lb (09/13/16 3:50 PM) Blood Pressure 162 / 98 Display (09/13/16 3:59 PM) BMI 26.19 (09/13/16 3:59 PM) Peripheral Pulse 100 bpm Rate [60-100 bpm] (09/13/16 3:50 PM) Temperature Oral 36.8 DegC [35.8-37.3 DegC] (09/13/16 3:50 PM) Problem List Condition Effective Dates Status Health [...] virus vaccine1 08/30/16 Recorded 1Location History: [address] [place] Procedures No data available for this section Social History Social History Type Response Smoking Status Former smoker Functional Status No data available for this section Reason for Referral No data available for this section Assessment and Plan No data available for this section
--- OUTSIDE RECORDS SUMMARY | 2017-03-31 08:50 | XMS REPORT | Referral Summary ---
Author [facility] Organization [facility] Address Unknown Phone Unavailable Care Team Providers Care Bumper Machine Operator Name Role Phone NONE, PCP PCP Unavailable Encounter Clinic [facility] [id number] Date(s): 10/27/16 - 10/27/16 [facility] [address] [address]- [facility] Discharge Disposition: Home Vital Signs No data [...] virus vaccine1 08/30/16 Recorded 1Location History: [address] [place] Procedures No data available for this section Social History Social History Type Response Smoking Status Former smoker Functional Status No data available for this section Reason for Referral No data available for this section Assessment and Plan No data available for this section
--- OUTSIDE RECORDS SUMMARY | 2017-03-31 08:51 | XMS REPORT | Referral Summary ---
Author [facility] Address Unknown Phone Unavailable Care Team Providers Care Synthetic Filament Extruder Name Role Phone NONE, PCP PCP Unavailable Encounter Clinic [facility] [id number] Date(s): 11/17/16 - 11/17/16 [facility] [address] [address]- [facility] Discharge Disposition: Home Vital Signs No data [...] virus vaccine1 08/30/16 Recorded 1Location History: [address] [place] Procedures No data available for this section Social History Social History Type Response Smoking Status Former smoker Functional Status No data available for this section Reason for Referral No data available for this section Assessment and Plan No data available for this section
--- OUTSIDE RECORDS SUMMARY | 2017-03-31 08:51 | XMS REPORT | Referral Summary ---
Author [facility] Organization [facility] Address Unknown Phone Unavailable Care Team Providers Care Sql Server Dba Developer Name Role Phone NONE, PCP PCP Unavailable Encounter Clinic [facility] [id number] Date(s): 09/21/16 - 09/21/16 [facility] [address] [facility] [address] [place] [address]- [facility] [phone] Discharge Disposition: Home Vital Signs No data [...] virus vaccine1 08/30/16 Recorded 1Location History: [address] [place] Procedures No data available for this section Social History Social History Type Response Smoking Status Former smoker Functional Status No data available for this section Reason for Referral No data available for this section Assessment and Plan No data available for this section
--- OUTSIDE RECORDS SUMMARY | 2017-03-31 08:51 | XMS REPORT | Referral Summary ---
Demographics Preferred Language Syrian Marital Status Unknown Congregation Affiliation Unknown Race Unknown Ethnic Group Unknown Author [facility] Organization [facility] Address Unknown Phone Unavailable Encounter Clinic [facility] [id number] Date(s): 09/01/16 - 09/01/16 [facility] [address] [place] [address] Discharge Disposition: 01 [facility] Home Vital [...]
--- OUTSIDE RECORDS SUMMARY | 2017-03-31 08:51 | XMS REPORT | Referral Summary ---
Author Author [facility] Organization [facility] Address Unknown Phone Unavailable Care Team Providers Care Supervisor Powder And Primer Canning Name Role Phone NONE, PCP PCP Unavailable Encounter Clinic [facility] [id number] Date(s): 11/18/16 - 11/18/16 [facility] [address] [address]- [facility] Discharge Disposition: Home Vital [...] virus vaccine1 08/30/16 Recorded 1Location History: [address] [place] Procedures No data available for this section Social History Social History Type Response Smoking Status Former smoker Functional Status No data available for this section Reason for Referral No data available for this section Assessment and Plan No data available for this section
--- OUTSIDE RECORDS SUMMARY | 2017-03-31 08:51 | XMS REPORT | Referral Summary ---
Author Author [facility] Organization [facility] Address Unknown Phone Unavailable Care Team Providers Care Bell Staff Name Role Phone NONE, PCP PCP Unavailable Encounter Clinic [facility] [id number] Date(s): 11/12/16 - 11/12/16 [facility] [address] [address]- [facility] Discharge Disposition: Home Vital Signs No data [...] virus vaccine1 08/30/16 Recorded 1Location History: [address] [place] Procedures No data available for this section Social History Social History Type Response Smoking Status Former smoker Functional Status No data available for this section Reason for Referral No data available for this section Assessment and Plan No data available for this section
--- NOTE | 2017-03-31 09:24 | ED Lower Extremity ---
General Stated Complaint: CUT ON LT LEG Source: patient Exam Limitations: no limitations History of Present Illness Time seen by provider: 09:52 Initial Comments Patient fell on her left leg ran again stable this morning and poor open the skin across to her left pressley in a V shape. It stopped bleeding however she feels she needs some stitches. She is not a tetanus shot for 3 years. Not on any blood thinners. No fevers chills nausea vomiting diarrhea. Allergies and Home Medications Allergies Coded Allergies: rifampin (Verified Allergy, Unknown, 08/26/16) Home Medications Albuterol Sulfate 8.5 Gm Hfa.aer.ad, 2 PUFF INH Q4H PRN for SHORTNESS OF BREATH, (Reported) Alendronate Sodium 70 Mg Tablet, 70 MG PO [place], (Reported) Azithromycin 250 Mg Tablet, 500 MG PO DAILY, #30 Prescribed by: PITA BERGER on 08/29/16 1107 Budesonide 0.5 Mg/2 Ml Ampul.neb, 0.5 MG INH RTBID, #60 Prescribed by: PITA BERGER on 08/29/16 1152 Cyclobenzaprine HCl 10 Mg Tablet, 10 MG PO TID PRN for MUSCLE SPASMS, (Reported) Hydrocodone/Acetaminophen 1 Each Tablet, 1 TAB PO Q4H PRN for MODERATE PAIN, #50 Prescribed by: PITA BERGER on 08/29/16 1107 Levothyroxine Sodium 100 Mcg Tablet, 100 MCG PO DAILY, (Reported) Naproxen Sodium 220 Mg Tablet, 220 MG PO Q8H PRN for PAIN, (Reported) Prednisone 10 Mg Tab, 0 PO UD for 10 Days 4 TABS X 2 DAYS 3 TABS X 2 DAYS 2 TABS X 2 DAYS 1 TAB X 2 DAYS 1/2 TAB X 2 DAYS FILLED #21 08-24-16 Prescribed by: PITA BERGER on 08/29/16 1107 Sulfamethoxazole/Trimethoprim 1 Each Tablet, 1 EACH PO BID for 7 Days, #14 Ref 0 Prescribed by: SUNITHA THORPE on 03/31/17 1051 Tiotropium [place] 4 Gm Mist.inhal, 2 PUFF INH DAILY, (Reported) Constitutional: No chills, No diaphoresis EENTM: No ear discharge, No ear pain Respiratory: No cough, No short of breath Cardiovascular: No chest pain, No palpitations, No syncope Gastrointestinal: No constipation, No nausea Genitourinary: No discharge, No dysuria Musculoskeletal: No back pain, No joint pain Skin: No pruritus, No rash Psychiatric/Neurological: Denies Numbness, Denies Paresthesia Past Ajatnqy-Oyxktx-Vuanmn Hx Patient Social History Alcohol Beverage of Choice: Beer Recent Foreign Travel: No Contact w/Someone Who Travel: No Recent Hopitalizations: Yes (ibanez) Immunizations Up To Date Date of Influenza Vaccine: Apr 26, 2016 Seasonal Allergies Seasonal Allergies: No Surgeries History of Surgeries: Yes Surgeries: Hysterectomy Respiratory History of Respiratory Disorde: Yes (MAC INFECTION IN ) Respiratory Disorders: COPD Currently Using BIPAP: Yes Cardiovascular History of Cardiac Disorders: No Neurological History of Neurological Disord: No Reproductive System Hx Reproductive Disorders: No Genitourinary History of Genitourinary Disor: No Gastrointestinal History of Gastrointestinal Di: No Musculoskeletal History of Musculoskeletal Dis: Yes Musculoskeletal Disorders: Scoliosis Endocrine History of Endocrine Disorders: Yes (Graves Disease, thyroidectomy ) Endocrine Disorders: Hypothyroidsim HEENT History of HEENT Disorders: No Cancer History of Cancer: No Psychosocial History of Psychiatric Problem: No Integumentary History of Skin or Integumenta: No Blood Transfusions History of Blood Disorders: No Adverse Reaction to a Blood Tr: No Family Medical History Family Medial History: Patient reports no known family medical history. Physical Exam Vital Signs Vital Sign - Last 12Hours 03/31/17 09:15 Temp 97.6 Pulse 85 Resp 16 B/P (MAP) 145/82 Pulse Ox 96 O2 Delivery Room Air Capillary Refill : General Appearance: WD/WN, no apparent distress HEENT: PERRL/EOMI, pharynx normal Cardiovascular: normal peripheral pulses, regular rate, rhythm Respiratory: chest non-tender, lungs clear Legs: right leg non-tender, right leg normal inspection, bilateral leg normal range of motion, right leg no evidence of injury, left leg other (3 cm V-shaped laceration on the anterior left pressley with a flap and no foreign body.) Knees: bilateral knee non-tender, bilateral knee normal inspection, bilateral knee no evidence of injury Ankles: bilateral ankle non-tender, bilateral ankle normal inspection, bilateral ankle normal range of motion, bilateral ankle no evidence of injury Neurologic/Tendon: normal sensation, normal motor functions, normal tendon functions, responds to pain Neurologic/Psychiatric: no motor/sensory deficits, alert, oriented x 3 Skin: normal color, warm/dry, other (C Legg description) Laceration Repair : Wound Location: Lower Extremities Other Wound Location left ant pressley mid shaft Wound Length (cm): 3 Wound's Depth, Shape: flap (v shaped flap), sub Q Wound Explored: clean Irrigated w/ Saline (ccs): 100 Betadine Prep?: Yes Anesthesia: 1% Lidocaine Volume Anesthetic (ccs): 9 Wound Debrided: minimal Suture: Ethlion Suture Size: 3-0 Number of Sutures: 10 Progress Patient was cleaned, numb, iodine applied and then stitches and a interrupted simple fashion applied. Patient tolerated the procedure well. Progress/Results/Core Measures Results/Orders My Orders Orders - SUNITHA THORPE Lidocaine 1% Injection (Xylocaine 1% Inj (03/31/17 10:00) Dipht,Pertuss(Acell),Tet Adult (Boostrix (03/31/17 10:00) Medications Given in ED Current Medications Medications Dose Ordered Sig/Sonia Route Start Time Stop Time Status Last Admin Dose Admin Lidocaine HCl 20 ml ONCE ONCE INJ 03/31/17 10:00 03/31/17 10:01 DC 03/31/17 10:25 20 ML Vital Signs/I&O Vital Sign - Last 12Hours 03/31/17 09:15 Temp 97.6 Pulse 85 Resp 16 B/P (MAP) 145/82 Pulse Ox 96 O2 Delivery Room Air Departure Impression Impression: Primary Impression: Laceration Disposition: 01 HOME, SELF-CARE Condition: Improved Departure-Patient Inst. Decision time for Depature: 10:49 Referrals: ELIAZAR ENGEL APRN (PCP) Primary Care Physician NO,LOCAL PHYSICIAN (Family) Primary Care Physician Patient Instructions: Laceration Repair With Stitches (DC) Add. Discharge Instructions: Keep the wound clean and covered with Vaseline and a dressing 1 in a dirty environment. Clean with soap and water. Do not submerse until 48 hours after the stitches were placed. Have the stitches examined for removal in 7-10 days by either your primary care physician or you may come back here. Take the antibiotics 1 tablet twice a day to completion. If he started having a lot of swelling fever nausea or increased pain you should return to the ER or your primary care physician to have the wound re-looked at. You may keep the wound elevated to help reduce swelling. Scripts Sulfamethoxazole/Trimethoprim (Bactrim Ds Tablet) 1 Each Tablet 1 EACH PO BID for 7 Days, #14 TAB 0 Refills Prov: SUNITHA THORPE 03/31/17 SUNITHA THORPE Mar 31, 2017 09:24
[2017-03-31] MEDS ORDERED: TETANUS,DIPTH,PERTUSS P/F (BOOSTRIX) 0.5 ML VIAL IM ONE (10:00)
[2017-03-31] MEDS ORDERED: LIDOCAINE 1% INJ 20 ML (XYLOCAINE) VIAL INJ ONE (10:00)
[2017-03-31] MEDS ORDERED: SULF1TAB35 PO (10:51)
[2017-03-31 10:55] VITALS: BP 145/82
== END 2017-03-31 10:55 | disposition home or self-care (01) ==
LOC: EDUNIT# 08:43 → ER 08:46
DX: Z04.3 Encounter for examination and observation following other accident (principal)
CPT/HCPCS: 12032